=== PATIENT | male | born 1965 | race Caucasian/White ===

== ENCOUNTER → 2023-11-29 09:52 | Outpatient (REF) | payer SELFPAY | LOC: HWRAD 09:52 | PROVIDERS: ATTENDING PHYSICIAN Physician Assistant | DX: E78.5 Hyperlipidemia, unspecified (principal) | CPT/HCPCS: 75571 ==

== ENCOUNTER → 2024-09-08 10:21 | Outpatient (REF) | payer BC, SELFPAY | LOC: RAD 10:21 | PROVIDERS: ATTENDING PHYSICIAN Physician Assistant | DX: R10.32 Left lower quadrant pain (principal) | CPT/HCPCS: 72110; 74177; Q9967 ==

== ENCOUNTER → 2024-11-07 08:05 | Outpatient (REF) | payer BC, SELFPAY | LOC: RAD 08:05 | PROVIDERS: ATTENDING PHYSICIAN Urology; FAMILY PHYSICIAN Family Medicine | DX: N40.1 Benign prostatic hyperplasia with lower urinary tract symptoms (principal) | CPT/HCPCS: 74174; Q9967 ==

== ENCOUNTER → 2024-11-19 14:04 | Outpatient (REF) | payer BC, SELFPAY | LOC: RAD 14:04 | PROVIDERS: ATTENDING PHYSICIAN Urology; FAMILY PHYSICIAN Family Medicine | DX: N40.1 Benign prostatic hyperplasia with lower urinary tract symptoms (principal) | CPT/HCPCS: 76872 ==

== ENCOUNTER → 2025-02-10 16:50 | Outpatient (REF) | payer BC, SELFPAY | LOC: RAD 16:50 | PROVIDERS: ATTENDING PHYSICIAN Family Medicine | DX: M54.12 Radiculopathy, cervical region (principal) | CPT/HCPCS: 72052 ==